=== PATIENT | male | born 1975 | race Caucasian/White ===

== ENCOUNTER 2023-04-11 11:01 | Emergency (ER) | payer OTHER, SELFPAY ==
[2023-04-11 11:12] VITALS: BP 127/82; PULSE 51; RESP 16; TEMP 36.4; O2SAT 100
--- NOTE | 2023-04-11 11:28 | ED.NAVMDI ---
HPI - Nausea/Vomiting/Diarrhea General Chief complaint: Nausea/Vomiting/Diarrhea Stated complaint: Diarrhea Time Seen by Provider: 04/11/23 11:19 Source: patient and RN notes reviewed Mode of arrival: ambulatory Limitations: no limitations History of Present Illness HPI Narrative: Patient presents today complaining of 2 episodes of diarrhea last night and 2 this morning. This morning he noted bright red blood in the toilet. Denies abdominal pain, nausea or vomiting, fever. Denies any GI history. He has never had a colonoscopy. Related Data Home Medications Medication Instructions Recorded Confirmed No Home Medications 04/11/23 04/11/23 Allergies Allergy/AdvReac Type Severity Reaction Status Date / Time No Known Allergies Allergy Verified 04/11/23 11:20 Review of Systems Review of Systems: CONSTITUTIONAL: Denies body aches, fever, chills, or sweats. EYES: Denies visual changes, redness, or discharge. ENT: Denies rhinorrhea, congestion, sore throat, or otalgia. CARDIOVASCULAR: Denies chest pain, palpitations, or edema. RESPIRATORY: Denies cough or dyspnea. GASTROINTESTINAL: Denies abdominal pain, nausea, vomiting. + diarrhea, bright red blood GENITOURINARY: Denies dysuria or hematuria. SKIN: Denies rash, itching, or wounds. MUSCULOSKELETAL: Denies back pain, joint pain, or myalgia. NEUROLOGIC: Denies headache, numbness, tingling, or weakness. PSYCH: Denies depression or anxiety. PMFSH Comments At time of signature, I have reviewed and agree with nursing past medical, surgical, social and family history unless otherwise noted. Please see nursing chart for further information. There is no relevant family history pertinent to the presenting complaint Exam Narrative: GENERAL: Well-appearing, well-nourished, and in no acute distress. HEAD: Normocephalic, atraumatic. EYES: EOMI. No redness or drainage. Conjunctivae normal. ENT: Mucous membranes pink and moist. NECK: Normal AROM. CHEST: No respiratory distress. Clear to auscultation. HEART: Regular rate and rhythm. No murmur appreciated. Normal peripheral pulses. ABDOMEN: Soft, nontender, nondistended, normal active bowel sounds. EXTREMITIES: Normal range of motion. No edema. SKIN: Warm, dry, no rash. Capillary refill normal. Normal skin turgor. NEURO: No focal deficits. Alert and oriented x3. Gait steady. PSYCH: Normal affect. No signs of depression or anxiety. Course Course Level of Care: Express Care Visit Vital Signs Vital signs: Vital Signs Temperature 97.6 F 04/11/23 11:12 Pulse Rate 51 L 04/11/23 11:12 Respiratory Rate 16 04/11/23 11:12 Blood Pressure 127/82 04/11/23 11:12 Pulse Oximetry 100 04/11/23 11:12 Temperature 97.6 F 04/11/23 11:12 Pulse Rate 51 L 04/11/23 11:12 Respiratory Rate 16 04/11/23 11:12 Blood Pressure 127/82 04/11/23 11:12 Pulse Oximetry 100 04/11/23 11:12 Reviewed Transfer Transfered to: [facility] Transportation: Other (Private vehicle) Transfer rationale: Bloody diarrhea Accepting physician: Sina MDM - Nausea/Vomiting/Diarrhea MDM Narrative Medical decision making narrative: Patient will be sent to the hospital for further evaluation in the emergency room. Differential Diagnosis Differential diagnosis: Likely gastroenteritis and other (Internal hemorrhoid, anal fissure, diverticulitis) Critical Care Time Critical Care Time Critical Care Time: No Discharge Plan Discharge Clinical Impression: Hematochezia Patient Disposition: Acute Care Hospital Condition: Stable Prescriptions: No Action No Home Medications Follow-up/Referrals: PHYSICIAN,LENS MATCHER [Primary Care Provider] - Time of Disposition: 11:34
== END 2023-04-11 11:45 | disposition short-term general hospital (02) ==
PROVIDERS: Emergency Provider Nurse Practitioner
DX: K92.1 Melena (principal)
CPT/HCPCS: 99212; G0463

== ENCOUNTER 2023-04-11 11:59 | Inpatient (IN) | payer OTHER, SELFPAY ==
--- NOTE | ~2023-04-11 | CT_ITS ---
EXAMINATION: CT abdomen pelvis w con DATE: 04/11/2023 12:58 INDICATION: GI bleed. TECHNIQUE: Computed tomography (CT) of the abdomen and pelvis was performed with 100 cc Omnipaque 350 intravenous contrast. The dose-length product was 668.43 mGy-cm. Automated exposure control and iter ative reconstruction technique were employed. COMPARISON: None. FINDINGS: Lung bases are unremarkable. Heart size normal. No significant pleural or pericardial effus ion. Fatty infiltration of the liver. The spleen, pancreas, adrenal glands and kidneys are unremarkab le. Gallbladder is contracted. Nonobstructive bowel gas pattern. Normal appendix. No significant vasc ular abnormality. No lymphadenopathy. No free air or free fluid. Colonic diverticulosis without evide nce for diverticulitis. Small fat-containing umbilical hernia. IMPRESSION: 1. No acute abdominal abnormality. Reviewed, dictated and finalized at location B. [employer]
[2023-04-11 12:04] VITALS: BP 134/76; PULSE 51; RESP 16; TEMP 36.2; O2SAT 100
--- NOTE | 2023-04-11 12:14 | ED.GIBLEED ---
HPI - GI Bleed General Chief complaint: GI Bleed Stated complaint: blood in stool Time Seen by Provider: 04/11/23 12:11 Rectal bleed started last night, up to 4 bowel movements so far, the 1st 2 was soft and dark, the last 2 watery and bloody fresh red bright blood. Patient denies any abdominal pain, fever, chills, nausea, vomiting, history of GI bleed. Patient does not take medicine, he does not smoke or uses drugs, drink occasionally. Source: family Mode of arrival: ambulatory Limitations: no limitations History of Present Illness HPI Narrative: Patient presents with rectal bleed started last night up to 4 bowel movements so far, the 1st 2 bowel movement was soft and dark, the last 2 bowel movements were bloody and watery, fresh red bright blood. Patient denies any abdominal pain fever chills nausea vomiting or history of GI bleed. Patient does not take any blood thinner. Patient does not smoke or uses drugs, drinks occasionally. No history of hemorrhoids. Related Data Home Medications Medication Instructions Recorded Confirmed No Home Medications 04/11/23 04/11/23 Allergies Allergy/AdvReac Type Severity Reaction Status Date / Time Penicillins Allergy Hives Verified 04/11/23 12:43 Review of Systems Review of Systems: All systems reviewed & are unremarkable except as noted in HPI and below Exam Narrative: General appearance: Well-developed, well-nourished Skin: Normal color Head: Normocephalic, nontraumatic Eyes: Clear conjunctiva ENT: Oropharynx normal, ears normal, nose normal Neck: Supple, nontender Chest and respiratory: Airway patent, no respiratory distress, no accessory muscle use Heart: Regular rate/rhythm Abdomen: Soft, nontender, no organomegaly, quiet bowel sounds rectal exam showed fresh red bright blood, gross, guaiac positive, no hemorrhoids Vascular: Normal peripheral pulses, normal capillary refill. Musculoskeletal: Normal range of motion, nontender back Neurologic: Alert and oriented ?3, [employer] SAL[employer] REPRESENTATIVE is normal as tested, no gross motor deficit Course Course Emergency Course: Patient did not have any bowel movement since arrival to the ED until the time of admission. Reevaluation(s) Reevaluation #1: Patient denying any new symptoms, no bowel movement since arrival to the ED until the time of admission Date: 04/11/23 Time: 14:24 Consultations Consultation #1: Dr. Ernst Date: 04/11/23 Time: 13:09 Vital Signs Vital signs: Vital Signs Temperature 36.2 C L 04/11/23 12:04 Pulse Rate 51 L 04/11/23 12:04 Respiratory Rate 16 04/11/23 12:04 Blood Pressure 134/76 04/11/23 12:04 Pulse Oximetry 100 04/11/23 12:04 Temperature 36.2 C L 04/11/23 12:04 Pulse Rate 51 L 04/11/23 12:04 Respiratory Rate 16 04/11/23 12:04 Blood Pressure 134/76 04/11/23 12:04 Pulse Oximetry 100 04/11/23 12:04 MDM - GI Bleed MDM Narrative Medical decision making narrative: Patient presents with rectal bleeding fresh red bright blood started last night, up to 4 bowel movement so far. In the ED patient have no bowel movement since our arrival until the time of admission. No history of GI bleed, vital signs on arrival stable, physical examination showed active gross rectal bleed fresh red bright blood, no hemorrhoids or mass or pain., CT abdomen and pelvis CT abdomen and pelvis with IV contrast showed no acute abnormalities Dr. Ernst was notified Admit to hospitalist, observation, Protonix started, patient received 1 L of normal saline IV, admit on 125 mL per hour. Differential Diagnosis Differential diagnosis: Likely gastritis, Upper gastrointestinal hemorrhage and Lower gastrointestinal hemorrhage Me
[2023-04-11 12:37] LABS: Basophils Percent Auto 0.7 % (0.2-1.2); Eosinophils Absolute Auto 0.2 K/mm3 (0-0.3); Eosinophils Percent Auto 4.2 % (0-4.4); Hematocrit 41.1 % (42.0-52.0); Hemoglobin 13.8 g/dL (14.0-18.0); Immature Granulocyte Absolute 0.02 K/mm3 (0.00-0.031); Immature Granulocyte Percent A 0.4 % (0-0.5); Lymphocytes Absolute Auto 1.31 K/mm3 (0.9-3.2); Mean Corpuscular HGB Conc 33.6 g/dl (32-36); Mean Corpuscular Hemoglobin 30.1 pg (26-34); Mean Corpuscular Volume 89.5 fl (80-100); Mean Platelet Volume 10.2 fl (7.4-10.4); Monocytes Absolute Auto 0.3 K/mm3 (0.1-0.6); Monocytes Percent Auto 7.1 % (2.6-8.5); Neutrophils Absolute Auto 2.6 K/mm3 (1.3-6.7); Neutrophils Percent Auto 58.6 % (45.5-73.1); Platelet Count Result 228 k/mm3 (150-375); Red Blood Count 4.59 M/mm3 (4.6-6.20); Red Cell Distribution Width 12.3 % (11.5-14.5); White Blood Count 4.5 K/mm3 (4.5-10.0)
[2023-04-11 12:44] LABS: Alanine Aminotransferase 27 U/L (6-50); Albumin Level 3.9 g/dL (3.5-5.1); Alkaline Phosphatase 76 U/L (38-126); Anion Gap 4 mmol/L (8-16); Aspartate Amino Transferase 24 U/L (17-59); Bilirubin,Total 0.5 mg/dL (0.2-1.3); Blood Urea Nitrogen 16 mg/dL (9-20); Calcium 8.9 mg/dL (8.4-10.2); Carbon Dioxide 29 mmol/L (22-30); Chloride 103 mmol/L (98-107); Estimated CRCL calculation 131 ml/min; Estimated Glomerular Filt Rate > 60; Glucose 103 mg/dL (65-110); Potassium 4.1 mmol/L (3.4-5.0); Sodium 136 mmol/L (137-145)
[2023-04-11] MEDS: SODIUM CHLORIDE 0.9% IV 1,000 ML 999 ML IV CONT (12:44)
[2023-04-11 12:48] LABS: Prothrombin Time 13.5 Seconds (11.1-14.7)
[2023-04-11 12:49] LABS: Partial Thromboplastin Time 26.7 SECONDS (22.3-36.8)
[2023-04-11] MEDS: PANTOPRAZOLE SODIUM IV 40 MG VIAL IV PUSH ×2 (13:11→14:47)
[2023-04-11] MEDS: SODIUM CHLORIDE 0.9% IV 1,000 ML 125 ML IV CONT ×2 (14:47→22:58)
[2023-04-11 14:54] VITALS: BP 115/69; PULSE 55; RESP 17; O2SAT 100
--- NOTE | 2023-04-11 16:02 | PM.IMHP ---
H&P: HPI History of Present Illness Date/Time: 04/11/23 16:05 Chief Complaint: Bloody stools. Narrative: This is a healthy 47-year-old male who presented to the emergency department via private vehicle for evaluation of bloody stools. The patient provides the following history. He was in his usual state of health when he went to bed last night. At about 23:30 he had the sudden urge to have a bowel and reports passing 2 soft stools overnight. This morning he had a pressure-like discomfort in the left lower quadrant and reports passing 2 watery stools which he describes as bright red blood. He has never had similar symptoms and typically has a normal bowel movement each day. He does not strain to move his bowels. He has no issues with hemorrhoids to his knowledge. He has never had a colonoscopy. He denies significant NSAID use. He is not having any pain or discomfort at this time and has not had any other bowel movement since admission. He denies syncope, near syncope, nausea, vomiting, fever, chills, sweats, and weight loss. Vital signs were stable on arrival to the emergency department. Hemoglobin was 13.8 on arrival. The remainder of his labs were pretty unremarkable. CT of the abdomen and pelvis did not show any acute abdominal abnormality but fatty infiltration of the liver was noted as well as colonic diverticulosis. He is being admitted in this setting for close monitoring and GI consultation. Review of Systems Review of Systems: Twelve systems were reviewed and are negative except for as per HPI. [facility] Past Medical History Medical History (Updated 04/11/23 @ 22:10 by Lorenza Ocasio PA-C) Cellulitis Fatty liver Noted on CT scan on 04/11/2023. Surgical History Surgical History (Updated 04/11/23 @ 22:08 by Lorenza Ocasio PA-C) History of repair of ACL (03/2008) Family History Family History (Updated 04/11/23 @ 22:08 by Lorenza Ocasio PA-C) Other Diverticulitis Social History Social History (Updated 04/11/23 @ 22:09 by Lorenza Ocasio PA-C) Social History: Surrogate medical decision maker: Desiree James, spouse. Code status: Full code. Smoking status: Never smoker Alcohol intake: current Drinks per week: 4 Substance use: never Substance use type: does not use Do You Feel Safe in your Home?: Yes Lack of Transportation: No Lack of Food: Never True Current Housing: I Have Housing Concerned About Future Housing: No Difficulty Paying Gas/Electric Bills: No Difficulty Paying for Meds: No Currently Unemployed: No Education: Bachelor's Degree Difficulty w/ Childcare or Family Care: No Additional living arrangements comments: Lives in [place]. Additional occupation/education comments: [employer]. Spiritual care concerns: No Meds Home Medications and Allergies Home Medications Medication Instructions Recorded Confirmed Type No Home Medications 04/11/23 04/11/23 History Allergies Allergy/AdvReac Type Severity Reaction Status Date / Time Penicillins Allergy Hives Verified 04/11/23 12:43 Vital Signs Vital Signs - 24 hr 04/11/23 12:04 04/11/23 14:54 Temperature 97.2 F L Pulse Rate 51 L 55 L Respiratory Rate 16 17 Blood Pressure 134/76 115/69 Pulse Oximetry 100 100 Exam Narrative: General: Well-developed, nontoxic-appearing male sitting up in bed no distress. Weight: 95 kg. BMI: 26.9. HEENT: PERRL, EOMI. Sclera anicteric. Oral mucosa moist. Neck: Supple. Respiratory: Lungs are clear to auscultation bilaterally. Cardiovascular: Bradycardic with normal S1-S2. Resting heart rate is typically in the upper 40s to low 50s per patient report. Gastrointestinal: Abdomen is soft, nontender, and nondistended with positive bowel sounds. Skin: Warm and dry. Extremities: No cyanosis, clubbing, or edema. Radial and pedal pulses intact. Neurological: Alert. Cranial nerves 2-12 are grossly intact. No gross focal
[2023-04-11 17:13] LABS: Hematocrit 38.6 % (42.0-52.0); Hemoglobin 12.4 g/dL (14.0-18.0)
--- NOTE | 2023-04-11 17:25 | ADMGEN ---
This patient, Alberto James, was admitted to 3 [facility] Surg Room 322-02 @ 1725. Patient/family oriented to hospital policies and general routines including ID bracelet, bed and alarms, visiting hours, pain management, procedures, bathroom and other care routines, personal items, smoking policy, room service/diet, and visiting hours. Information on how to activate the Rapid Response Team has been discussed. Patient/Family are encouraged to report perceived risks to care and to ask questions if they do not understand what they are told or what they should do.
[2023-04-11 17:55] VITALS: BMI 26.9
[2023-04-11 20:00] VITALS: BP 127/81; BP 130/71; BP 138/72; O2SAT 98
[2023-04-11 21:25] LABS: Hematocrit 37.7 % (42.0-52.0); Hemoglobin 12.1 g/dL (14.0-18.0)
[2023-04-11 21:31] VITALS: BP 123/74; PULSE 51; RESP 16; TEMP 36.4; O2SAT 99
[2023-04-12] VITALS (12 sets, daily range): BP systolic 107–122; BP diastolic 55–71; PULSE 52–70; RESP 13–18; TEMP 36.2–36.6; O2SAT 97–99
[2023-04-12 03:44] LABS: Basophils Percent Auto 0.2 % (0.2-1.2); Eosinophils Absolute Auto 0.2 K/mm3 (0-0.3); Eosinophils Percent Auto 4.7 % (0-4.4); Hematocrit 36.3 % (42.0-52.0); Hemoglobin 12.3 g/dL (14.0-18.0); Immature Granulocyte Absolute 0.01 K/mm3 (0.00-0.031); Immature Granulocyte Percent A 0.2 % (0-0.5); Lymphocytes Absolute Auto 1.64 K/mm3 (0.9-3.2); Lymphocytes Percent Auto 36.9 % (18.3-44.2); Mean Corpuscular HGB Conc 33.9 g/dl (32-36); Mean Corpuscular Volume 88.5 fl (80-100); Monocytes Absolute Auto 0.3 K/mm3 (0.1-0.6); Monocytes Percent Auto 6.7 % (2.6-8.5); Neutrophils Absolute Auto 2.3 K/mm3 (1.3-6.7); Neutrophils Percent Auto 51.3 % (45.5-73.1); Platelet Count Result 207 k/mm3 (150-375); Red Cell Distribution Width 12.3 % (11.5-14.5); White Blood Count 4.5 K/mm3 (4.5-10.0)
[2023-04-12 04:02] LABS: Anion Gap 2 mmol/L (8-16); Blood Urea Nitrogen 11 mg/dL (9-20); Calcium 8.5 mg/dL (8.4-10.2); Carbon Dioxide 27 mmol/L (22-30); Chloride 109 mmol/L (98-107); Estimated CRCL calculation 131 ml/min; Estimated Glomerular Filt Rate > 60; Glucose 92 mg/dL (65-110); Potassium 4.2 mmol/L (3.4-5.0); Sodium 138 mmol/L (137-145)
[2023-04-12 08:37] LABS: Hematocrit 38.6 % (42.0-52.0); Hemoglobin 12.6 g/dL (14.0-18.0)
[2023-04-12] MEDS: PANTOPRAZOLE SODIUM IV 40 MG VIAL IV PUSH (10:16)
[2023-04-12] MEDS: SODIUM CHLORIDE 0.9% IV 1,000 ML 125 ML IV CONT (10:19)
--- NOTE | 2023-04-12 16:42 | PM.IMPN ---
Progress Note: A&P Assessment and Plan (1) Diverticulosis of colon: Code(s): K57.30 - Diverticulosis of large intestine without perforation or abscess without bleeding Status: Acute (2) Fatty liver: Code(s): K76.0 - Fatty (change of) liver, not elsewhere classified Status: Acute (3) Rectal bleeding: Code(s): K62.5 - Hemorrhage of anus and rectum Status: Acute (4) Acute GI bleeding: Code(s): K92.2 - Gastrointestinal hemorrhage, unspecified Status: Acute (5) Acute blood loss anemia (ABLA): Code(s): D62 - Acute posthemorrhagic anemia Status: Acute Plan Continue with the medical management on the floor Patient's hemoglobin was 13.8 on admission, which is now ranging between 12.1 and 12.6 Monitor hemoglobin closely Avoid NSAID/anticoagulation/aspirin Switch IV Protonix to oral Protonix 40 mg b.i.d. GI consult given from ER upon admission who are not available this weekend and which evaluate him on Friday DC IV fluids DC NPO, continue with regular diet Patient has family history of diverticulosis which is apparently his past history as well Patient likely has mild GI bleeding from diverticulosis/hemorrhoids Patient would likely need colonoscopy on Friday DC planning once cleared by GI ? Patient seen and examined at bedside during my morning rounds ? Collaborated with patient's nurse at the bedside in detail and addressed all concerns ? Labs, electrolytes, radiology, investigations and test results reviewed ? Consult/Nursing/Ancilliary notes on the chart reviewed and appreciated ? Spoke with patient/ at the bedside and answered all the questions that they had Repeat labs in a.m. Electrolyte replacement as per protocol. Patient will be monitored very closely on the floor. Further recommendations as per the hospital course. Time Spent With Patient Time with patient: 25 - 35 minutes Subjective Date/time seen: 04/12/23 16:42 Interval history: Patient feeling better today. His abdominal pain and spasms have improved. He is still seeing the blood-tinged stools. GI is not on this weekend and will see him on Friday. Review of Systems Review of Systems: 14 systems were reviewed with pertinent positives and negatives per HPI. Except as documented in the HPI/progress notes, all other systems were reviewed and are negative. All systems reviewed & are unremarkable except as noted in HPI and below Exam Narrative: PHYSICAL EXAMINATION: Vital signs: Please see the chart General physical exam: Patient sitting in bed, pleasant cooperative on exam, appears in no acute distress, he is concerned about bloody stools Head/eyes: Atraumatic, EOMI, PERRLA ENT: Moist mucous membranes, nasal passages clear Neck: Supple, full range of motion, trachea midline CVS: S1 + S2, regular rate and rhythm, no murmurs Respiratory: Bilaterally fair air entry in both lung hughes, mild B/L crackles, symmetric chest expansion, no distress Abdomen: Soft, non-tender, bowel sounds +ve, no organomegaly Extremities: No clubbing, no cyanosis, no edema, no calf tenderness Musculoskeletal: Moves all, adequate range of motion, no muscle spasms Skin: Warm, dry, no jaundice, no cyanosis Neurological: Awake, alert, oriented x 3, cranial nerves II-XII intact, no focal neurological deficits Psychiatric: Normal mood, non suicidal Objective Data Vital Signs Vital Signs: Vital Signs - 24 hr 04/11/23 18:11 04/11/23 20:00 04/11/23 21:31 Temperature 36.4 C Pulse Rate 51 L Respiratory Rate 16 Blood Pressure 123/74 Pulse Oximetry 98 99 Oxygen Delivery Room Air Room Air 04/11/23 20:00 04/11/23 20:00 04/11/23 20:00 Temperature Pulse Rate Respiratory Rate Blood Pressure 138/72 130/71 127/81 Pulse Oximetry Oxygen Delivery 04/12/23 00:00 04/12/23 05:55 04/12/23 09:14 Temperature 36.2 C L 36.4 C L Pulse Rate 54 L 60 Respiratory Rate 18 16 Blood Pressure 11
[2023-04-12] MEDS: PANTOPRAZOLE 40 MG TABLET PO (19:51)
[2023-04-13] VITALS (8 sets, daily range): BP systolic 115–139; BP diastolic 65–88; PULSE 50–72; RESP 12–20; TEMP 36.2–36.9; O2SAT 97–99
[2023-04-13 07:22] LABS: Basophils Percent Auto 0.7 % (0.2-1.2); Eosinophils Absolute Auto 0.2 K/mm3 (0-0.3); Eosinophils Percent Auto 3.9 % (0-4.4); Immature Granulocyte Absolute 0.01 K/mm3 (0.00-0.031); Immature Granulocyte Percent A 0.2 % (0-0.5); Lymphocytes Absolute Auto 1.21 K/mm3 (0.9-3.2); Lymphocytes Percent Auto 27.8 % (18.3-44.2); Mean Corpuscular HGB Conc 33.3 g/dl (32-36); Mean Corpuscular Hemoglobin 29.5 pg (26-34); Mean Corpuscular Volume 88.5 fl (80-100); Monocytes Absolute Auto 0.3 K/mm3 (0.1-0.6); Monocytes Percent Auto 6.2 % (2.6-8.5); Neutrophils Absolute Auto 2.7 K/mm3 (1.3-6.7); Neutrophils Percent Auto 61.2 % (45.5-73.1); Platelet Count Result 192 k/mm3 (150-375); Red Blood Count 4.07 M/mm3 (4.6-6.20); Red Cell Distribution Width 12.2 % (11.5-14.5); White Blood Count 4.4 K/mm3 (4.5-10.0)
[2023-04-13 07:34] LABS: Anion Gap 5 mmol/L (8-16); Blood Urea Nitrogen 13 mg/dL (9-20); Calcium 8.5 mg/dL (8.4-10.2); Carbon Dioxide 27 mmol/L (22-30); Chloride 107 mmol/L (98-107); Estimated CRCL calculation 116 ml/min; Estimated Glomerular Filt Rate > 60; Glucose 89 mg/dL (65-110); Phosphorus 3.3 mg/dL (2.5-4.5); Potassium 3.9 mmol/L (3.4-5.0); Sodium 139 mmol/L (137-145)
[2023-04-13] MEDS: PANTOPRAZOLE 40 MG TABLET PO ×2 (08:55→21:07)
--- NOTE | 2023-04-13 16:41 | PM.IMPN ---
Progress Note: A&P Assessment and Plan (1) Diverticulosis of colon: Code(s): K57.30 - Diverticulosis of large intestine without perforation or abscess without bleeding Status: Acute (2) Fatty liver: Code(s): K76.0 - Fatty (change of) liver, not elsewhere classified Status: Acute (3) Rectal bleeding: Code(s): K62.5 - Hemorrhage of anus and rectum Status: Acute (4) Acute GI bleeding: Code(s): K92.2 - Gastrointestinal hemorrhage, unspecified Status: Acute (5) Acute blood loss anemia (ABLA): Code(s): D62 - Acute posthemorrhagic anemia Status: Acute Plan Continue with the medical management on the floor Patient's hemoglobin was 13.8 on admission, which is now ranging between 12.1 and 12.6 Monitor hemoglobin closely Avoid NSAID/anticoagulation/aspirin Switch IV Protonix to oral Protonix 40 mg b.i.d. GI consult given from ER upon admission who are not available this weekend and which evaluate him on Friday DC IV fluids DC NPO, continue with regular diet Patient has family history of diverticulosis He has also been diagnosed diverticulosis on CT scan of abdomen during this visit Patient likely has mild GI bleeding from diverticulosis/hemorrhoids GI consult given for evaluation and management recommendations Patient would likely need colonoscopy on Friday DC planning once cleared by GI ? Patient seen and examined at bedside during my morning rounds ? Collaborated with patient's nurse at the bedside in detail and addressed all concerns ? Labs, electrolytes, radiology, investigations and test results reviewed ? Consult/Nursing/Ancilliary notes on the chart reviewed and appreciated ? Spoke with patient/ at the bedside and answered all the questions that they had Repeat labs in a.m. Electrolyte replacement as per protocol. Patient will be monitored very closely on the floor. Further recommendations as per the hospital course. Time Spent With Patient Time with patient: less than 15 minutes Subjective Date/time seen: 04/13/23 16:41 Interval history: Patient is feeling OK. Still seeing blood tinged stools. Awaiting GI consult in am. Review of Systems Review of Systems: 14 systems were reviewed with pertinent positives and negatives per HPI. Except as documented in the HPI/progress notes, all other systems were reviewed and are negative. All systems reviewed & are unremarkable except as noted in HPI and below Exam Narrative: PHYSICAL EXAMINATION: Vital signs: Please see the chart General physical exam: Patient sitting in bed, pleasant cooperative on exam, appears in no acute distress, he is concerned about bloody stools Head/eyes: Atraumatic, EOMI, PERRLA ENT: Moist mucous membranes, nasal passages clear Neck: Supple, full range of motion, trachea midline CVS: S1 + S2, regular rate and rhythm, no murmurs Respiratory: Bilaterally fair air entry in both lung hughes, mild B/L crackles, symmetric chest expansion, no distress Abdomen: Soft, non-tender, bowel sounds +ve, no organomegaly Extremities: No clubbing, no cyanosis, no edema, no calf tenderness Musculoskeletal: Moves all, adequate range of motion, no muscle spasms Skin: Warm, dry, no jaundice, no cyanosis Neurological: Awake, alert, oriented x 3, cranial nerves II-XII intact, no focal neurological deficits Psychiatric: Normal mood, non suicidal Objective Data Vital Signs Vital Signs: Vital Signs - 24 hr 04/12/23 19:13 04/12/23 19:34 04/12/23 19:44 Temperature Pulse Rate Respiratory Rate Blood Pressure Pulse Oximetry 98 98 98 Oxygen Delivery Room Air Room Air Room Air 04/12/23 19:54 04/12/23 19:55 04/12/23 19:55 Temperature 36.3 C L Pulse Rate 62 53 L 64 Respiratory Rate 13 Blood Pressure 121/67 114/65 107/63 Pulse Oximetry 98 98 98 Oxygen Delivery 04/12/23 21:21 04/13/23 05:43 04/13/23 08:00 Temperature 36.3 C L 36.9 C Pulse Rate 62 72 Respiratory R
[2023-04-14] VITALS (7 sets, daily range): BP systolic 118–142; BP diastolic 64–79; PULSE 52–56; RESP 18–20; TEMP 35.9–36.8; O2SAT 99
[2023-04-14 06:43] LABS: Hematocrit 33.4 % (42.0-52.0); Hemoglobin 10.9 g/dL (14.0-18.0); Mean Corpuscular HGB Conc 32.6 g/dl (32-36); Mean Corpuscular Hemoglobin 29.4 pg (26-34); Red Blood Count 3.71 M/mm3 (4.6-6.20); Red Cell Distribution Width 12.2 % (11.5-14.5); White Blood Count 5.4 K/mm3 (4.5-10.0)
[2023-04-14 06:44] LABS: Basophils Percent Auto 0.4 % (0.2-1.2); Eosinophils Absolute Auto 0.1 K/mm3 (0-0.3); Eosinophils Percent Auto 2.6 % (0-4.4); Immature Granulocyte Absolute 0.02 K/mm3 (0.00-0.031); Immature Granulocyte Percent A 0.4 % (0-0.5); Lymphocytes Absolute Auto 1.44 K/mm3 (0.9-3.2); Lymphocytes Percent Auto 26.9 % (18.3-44.2); Monocytes Absolute Auto 0.4 K/mm3 (0.1-0.6); Neutrophils Absolute Auto 3.3 K/mm3 (1.3-6.7); Neutrophils Percent Auto 61.7 % (45.5-73.1); Platelet Count Result 190 k/mm3 (150-375)
[2023-04-14 06:55] LABS: Anion Gap 5 mmol/L (8-16); Blood Urea Nitrogen 18 mg/dL (9-20); Calcium 8.4 mg/dL (8.4-10.2); Carbon Dioxide 28 mmol/L (22-30); Chloride 105 mmol/L (98-107); Estimated CRCL calculation 116 ml/min; Estimated Glomerular Filt Rate > 60; Glucose 86 mg/dL (65-110); Potassium 4.1 mmol/L (3.4-5.0); Sodium 138 mmol/L (137-145)
[2023-04-14] MEDS: PANTOPRAZOLE 40 MG TABLET PO ×2 (07:52→20:33)
--- NOTE | 2023-04-14 13:35 | WPDGICN ---
Assessment and Plan Assessment and plan (1) Acute blood loss anemia (ABLA): Code(s): D62 - Acute posthemorrhagic anemia Status: Acute Assessment and Plan: wonder if could be diverticular source will do colonoscopy tomorrow since never had one more recommendations after scope (2) Diverticulosis of colon: Code(s): K57.30 - Diverticulosis of large intestine without perforation or abscess without bleeding Status: Acute (3) Rectal bleeding: Code(s): K62.5 - Hemorrhage of anus and rectum Status: Acute Assessment and Plan: monitor for more bleeding (4) Fatty liver: Code(s): K76.0 - Fatty (change of) liver, not elsewhere classified Status: Acute Assessment and Plan: incidental finding GI Consult Note Consult date/time: 04/14/23 13:35 Reason for consult: rectal bleeding HPI: Alberto James is a 47 year old male with no chronic medical problems with new onset of brbpr night then came to hospital and admitted. CT scan reviewed, no acute abdominal abnormality but fatty infiltration of the liver was noted as well as colonic diverticulosis. He is still having blood in stools, 2-3 times a day, no abdominal pain but never had colonoscopy. hgb from 13 to 10.9 Review of Systems Constitutional: Constitutional: Denies headache(s) Eyes: Eyes: Denies blurry vision ENT: Reports Normal hearing present, Denies headache(s) and Denies neck pain Cardiovascular: Cardiovascular: Denies chest pain and Denies dyspnea Respiratory: Respiratory: Denies dyspnea Gastrointestinal: Gastrointestinal: Reports no additional gastrointestinal complaints Genitourinary: Genitourinary: Denies dysuria Musculoskeletal: Musculoskeletal: Denies neck pain Integumentary/Breasts: Skin/Breast: Denies dry skin Neurologic: Reports Normal hearing present and Denies headache(s) Psychiatric: Psychiatric: Denies anxiety Endocrine: Endocrine: Denies change in body appearance Hematologic/Lymphatic: Hematologic/Lymphatic: Denies easy bleeding Allergic/Immunologic: Allergic/Immunologic: Denies urticaria PMFSH Past Medical History Medical History (Updated 04/12/23 @ 16:44 by Dmitri Rodriguez MD) Cellulitis Fatty liver Noted on CT scan on 04/11/2023. Surgical History Surgical History (Updated 04/11/23 @ 22:08 by Lorenza G Gerling, PA-C) History of repair of ACL (03/2008) Family History Family History (Updated 04/11/23 @ 22:08 by Lorenza Ocasio PA-C) Other Diverticulitis Social History Social History (Updated 04/11/23 @ 22:09 by Lorenza Ocasio PA-C) Social History: Surrogate medical decision maker: Desiree James, spouse. Code status: Full code. Smoking status: Never smoker Alcohol intake: current Drinks per week: 4 Substance use: never Substance use type: does not use Do You Feel Safe in your Home?: Yes Lack of Transportation: No Lack of Food: Never True Current Housing: I Have Housing Concerned About Future Housing: No Difficulty Paying Gas/Electric Bills: No Difficulty Paying for Meds: No Currently Unemployed: No Education: Bachelor's Degree Difficulty w/ Childcare or Family Care: No Additional living arrangements comments: Lives in [place]. Additional occupation/education comments: [employer]. Spiritual care concerns: No Meds Home Medications and Allergies Home Medications Medication Instructions Recorded Confirmed Type No Home Medications 04/11/23 04/11/23 History Allergies Allergy/AdvReac Type Severity Reaction Status Date / Time Penicillins Allergy Hives Verified 04/11/23 12:43 Vital Signs Vital Signs - 24 hr 04/13/23 14:00 04/13/23 20:00 04/13/23 22:00 Temperature 97.1 F L 98.1 F Pulse Rate 55 L 50 L Respiratory Rate 16 20 Blood Pressure 129/87 123/67 Pulse Oximetry 99 99 Oxygen Delivery Room Air 04/13/23 20:00 04/13/23 20:05 04/13/23 20:1
[2023-04-14] MEDS: BISACODYL 5 MG TABLET EC 20 MG PO (16:49)
[2023-04-14] MEDS: polyethylene glycoL 3350 238 GM BOTTLE PO (16:49)
--- NOTE | 2023-04-14 17:05 | PM.IMPN ---
Progress Note: A&P Assessment and Plan (1) Diverticulosis of colon: Code(s): K57.30 - Diverticulosis of large intestine without perforation or abscess without bleeding Status: Acute (2) Fatty liver: Code(s): K76.0 - Fatty (change of) liver, not elsewhere classified Status: Acute (3) Rectal bleeding: Code(s): K62.5 - Hemorrhage of anus and rectum Status: Acute (4) Acute GI bleeding: Code(s): K92.2 - Gastrointestinal hemorrhage, unspecified Status: Acute (5) Acute blood loss anemia (ABLA): Code(s): D62 - Acute posthemorrhagic anemia Status: Acute Plan Continue with the medical management on the floor Patient's hemoglobin was 13.8 on admission, which is continuing to downtrend and currently at 10.9 today Check iron profile with morning labs Monitor hemoglobin closely Avoid NSAID/anticoagulation/aspirin Patient has family history of diverticulosis He has also been diagnosed diverticulosis on CT scan of abdomen during this visit Patient likely has mild GI bleeding from diverticulosis/hemorrhoids Switch IV Protonix to oral Protonix 40 mg b.i.d. GI consult appreciated Patient will be be prepped and kept NPO after midnight for colonoscopy in am DC planning once cleared by GI ? Patient seen and examined at bedside during my morning rounds ? Collaborated with patient's nurse at the bedside in detail and addressed all concerns ? Labs, electrolytes, radiology, investigations and test results reviewed ? Consult/Nursing/Ancilliary notes on the chart reviewed and appreciated ? Spoke with patient/ at the bedside and answered all the questions that they had Repeat labs in a.m. Electrolyte replacement as per protocol. Patient will be monitored very closely on the floor. Further recommendations as per the hospital course. Time Spent With Patient Time with patient: 15 - 25 minutes Subjective Date/time seen: 04/14/23 17:05 Interval history: Patient lying in bed during work. Awaiting GI consultation. Still seeing blood tinged stools. Hemoglobin is slowly downtrending. Review of Systems Review of Systems: 14 systems were reviewed with pertinent positives and negatives per HPI. Except as documented in the HPI/progress notes, all other systems were reviewed and are negative. All systems reviewed & are unremarkable except as noted in HPI and below Exam Narrative: PHYSICAL EXAMINATION: Vital signs: Please see the chart General physical exam: Patient sitting in bed, pleasant cooperative on exam, appears in no acute distress, he is concerned about bloody stools Head/eyes: Atraumatic, EOMI, PERRLA ENT: Moist mucous membranes, nasal passages clear Neck: Supple, full range of motion, trachea midline CVS: S1 + S2, regular rate and rhythm, no murmurs Respiratory: Bilaterally fair air entry in both lung hughes, mild B/L crackles, symmetric chest expansion, no distress Abdomen: Soft, non-tender, bowel sounds +ve, no organomegaly Extremities: No clubbing, no cyanosis, no edema, no calf tenderness Musculoskeletal: Moves all, adequate range of motion, no muscle spasms Skin: Warm, dry, no jaundice, no cyanosis Neurological: Awake, alert, oriented x 3, cranial nerves II-XII intact, no focal neurological deficits Psychiatric: Normal mood, non suicidal Objective Data Vital Signs Vital Signs: Vital Signs - 24 hr 04/13/23 20:00 04/13/23 22:00 04/13/23 20:00 Temperature 36.7 C Pulse Rate 50 L Respiratory Rate 20 Blood Pressure 123/67 132/67 Pulse Oximetry 99 Oxygen Delivery Room Air 04/13/23 20:05 04/13/23 20:10 04/14/23 06:00 Temperature 36.8 C Pulse Rate 52 L Respiratory Rate 20 Blood Pressure 139/83 120/88 118/66 Pulse Oximetry 99 Oxygen Delivery 04/14/23 08:00 04/14/23 14:00 04/14/23 14:00 Temperature 35.9 C L Pulse Rate 52 L Respiratory Rate 18 Blood Pressure 119/77 126/75 Pulse Oximetry 99 Oxygen Delivery Room Air
[2023-04-15] VITALS (8 sets, daily range): BP systolic 96–127; BP diastolic 60–75; PULSE 52–80; RESP 16–20; TEMP 36.2–36.8; O2SAT 96–100
[2023-04-15] MEDS: MAGNESIUM CITRATE 300 ML BTL PO (02:30)
[2023-04-15 06:37] LABS: Basophils Percent Auto 0.1 % (0.2-1.2); Eosinophils Absolute Auto 0.1 K/mm3 (0-0.3); Hemoglobin 11.8 g/dL (14.0-18.0); Immature Granulocyte Absolute 0.02 K/mm3 (0.00-0.031); Immature Granulocyte Percent A 0.2 % (0-0.5); Lymphocytes Absolute Auto 0.81 K/mm3 (0.9-3.2); Lymphocytes Percent Auto 9.2 % (18.3-44.2); Mean Corpuscular HGB Conc 32.8 g/dl (32-36); Mean Corpuscular Hemoglobin 29.3 pg (26-34); Mean Corpuscular Volume 89.3 fl (80-100); Mean Platelet Volume 9.8 fl (7.4-10.4); Monocytes Absolute Auto 0.5 K/mm3 (0.1-0.6); Monocytes Percent Auto 6.1 % (2.6-8.5); Neutrophils Absolute Auto 7.4 K/mm3 (1.3-6.7); Neutrophils Percent Auto 83.4 % (45.5-73.1); Platelet Count Result 217 k/mm3 (150-375); Red Blood Count 4.03 M/mm3 (4.6-6.20); Red Cell Distribution Width 12.4 % (11.5-14.5); White Blood Count 8.8 K/mm3 (4.5-10.0)
[2023-04-15 07:05] LABS: Anion Gap 7 mmol/L (8-16); Blood Urea Nitrogen 10 mg/dL (9-20); Calcium 9.1 mg/dL (8.4-10.2); Carbon Dioxide 25 mmol/L (22-30); Chloride 107 mmol/L (98-107); Estimated CRCL calculation 116 ml/min; Estimated Glomerular Filt Rate > 60; Glucose 99 mg/dL (65-110); Potassium 4.2 mmol/L (3.4-5.0); Sodium 139 mmol/L (137-145)
[2023-04-15] MEDS: PANTOPRAZOLE 40 MG TABLET PO (09:23)
[2023-04-15 10:03] LABS: Iron 58 ug/dL (49-181); Percent Iron Saturation 16 % (20-50)
[2023-04-15] MEDS: LACTATED RINGERS 1,000 ML 150 ML IV CONT (13:42)
--- NOTE | 2023-04-15 14:01 | WPDANESEPPF ---
Anes - Initial Pre Proc Eval Procedure: Operation Date: 04/15/23 15:00 Proposed Procedures p Colonoscopy - Ned Shepard MD Date/Time: 04/15/23 14:01 Surgeon: Dmitri Rodriguez MD Pre Op Diagnosis: GI Bleed Patient Data Age: 47 Gender: M Height: 1.88 m Weight: 95.8 kg Last Vital Signs Temp 98.3 F 04/15/23 13:40 Pulse 56 L 04/15/23 13:40 Resp 18 04/15/23 13:40 BP 127/75 04/15/23 13:40 Pulse Ox 100 04/15/23 13:40 O2 Del Method Room Air 04/15/23 13:40 Allergies Allergy/AdvReac Type Severity Reaction Status Date / Time Penicillins Allergy Hives Verified 04/11/23 12:43 Home Medications Medication Instructions Recorded Confirmed Type No Home Medications 04/11/23 04/11/23 History Laboratory Tests 04/15/23 06:21 WBC 8.8 K/mm3 (4.5-10.0) RBC 4.03 L M/mm3 (4.6-6.20) Hgb 11.8 L g/dL (14.0-18.0) Hct 36.0 L % (42.0-52.0) MCV 89.3 fl (80-100) MCH 29.3 pg (26-34) MCHC 32.8 g/dl (32-36) RDW 12.4 % (11.5-14.5) Plt Count 217 k/mm3 (150-375) MPV 9.8 fl (7.4-10.4) Immature Gran % (Auto) 0.2 % (0-0.5) Neut % (Auto) 83.4 H % (45.5-73.1) Lymph % (Auto) 9.2 L % (18.3-44.2) [place] % (Auto) 6.1 % (2.6-8.5) Eos % (Auto) 1.0 % (0-4.4) Baso % (Auto) 0.1 L % (0.2-1.2) Lymph # (Auto) 0.81 L K/mm3 (0.9-3.2) [place] # (Auto) 0.5 K/mm3 (0.1-0.6) Eos # (Auto) 0.1 K/mm3 (0-0.3) Baso # (Auto) 0.0 K/mm3 (0.0-0.1) Abs Immat Gran (auto) 0.02 K/mm3 (0.00-0.031) Absolute Neuts (auto) 7.4 H K/mm3 (1.3-6.7) Absolute Nucleated RBC 0.0 K/mm3 (0.0-0.012) Nucleated RBC % 0.0 % (0.0-0.2) Sodium 139 mmol/L (137-145) Potassium 4.2 mmol/L (3.4-5.0) Chloride 107 mmol/L (98-107) Carbon Dioxide 25 mmol/L (22-30) Anion Gap 7 L mmol/L (8-16) BUN 10 D mg/dL (9-20) Creatinine 0.80 mg/dL (0.7-1.3) Estim Creat Clear Calc 116 ml/min Estimated GFR > 60 (59 - ) Glucose 99 mg/dL (65-110) Calcium 9.1 mg/dL (8.4-10.2) Iron 58 ug/dL (49-181) TIBC 363 ug/dL (265-497) % Saturation 16 L % (20-50) Ferritin 23.10 ng/mL (17.9-464) Patient hx anesthesia problems: none Family hx anesthesia problems: none Results Review: All pre-operative results and documents have been reviewed as part of the pre-operative evaluation. [facility] Past Medical History Medical History (Updated 04/12/23 @ 16:44 by Dmitri Rodriguez MD) Cellulitis Fatty liver Noted on CT scan on 04/11/2023. Surgical History Surgical History (Updated 04/11/23 @ 22:08 by Lorenza Ocasio PA-C) History of repair of ACL (03/2008) Family History Family History (Updated 04/11/23 @ 22:08 by Lorenza Ocasio PA-C) Other Diverticulitis Social History Social History (Updated 04/11/23 @ 22:09 by Lorenza Ocasio PA-C) Social History: Surrogate medical decision maker: Desiree James, spouse. Code status: Full code. Smoking status: Never smoker Alcohol intake: current Drinks per week: 4 Substance use: never Substance use type: does not use Do You Feel Safe in your Home?: Yes Lack of Transportation: No Lack of Food: Never True Current Housing: I Have Housing Concerned About Future Housing: No Difficulty Paying Gas/Electric Bills: No Difficulty Paying for Meds: No Currently Unemployed: No Education: Bachelor's Degree Difficulty w/ Childcare or Family Care: No Additional living arrangements comments: Lives in [place]. Additional occupation/education comments: [employer]. Spiritual care concerns: No Anes - Eval Final PreProcedure Day of Procedure 04/15/23 14:01 Patient weight: normal Heart: regular rate and rhythm Lungs: clear to auscultation Airway: Mallampati scale class II Neurological: alert and oriented Last oral intake: >/= 8 hours ASA classifi
--- NOTE | 2023-04-15 16:22 | PM.DS ---
DS: Admitting Diagnosis Discharge Date 04/15/2023: Admitting Diagnosis Lower GI bleeding DS: Discharge Diagnosis Discharge Diagnosis (1) Acute blood loss anemia (ABLA): Code(s): D62 - Acute posthemorrhagic anemia Status: Acute (2) Diverticulosis of colon: Code(s): K57.30 - Diverticulosis of large intestine without perforation or abscess without bleeding Status: Acute (3) Fatty liver: Code(s): K76.0 - Fatty (change of) liver, not elsewhere classified Status: Acute (4) Rectal bleeding: Code(s): K62.5 - Hemorrhage of anus and rectum Status: Acute (5) Acute GI bleeding: Code(s): K92.2 - Gastrointestinal hemorrhage, unspecified Status: Acute (6) Colonic polyp: Code(s): K63.5 - Polyp of colon Status: Acute (7) Internal hemorrhoids: Code(s): K64.8 - Other hemorrhoids Status: Acute DS: Summary Hospital Course Reason for hospitalization: Patient admitted for evaluation of his bloody stools Hospital Course: H&P: HPI History of Present Illness Date/Time: 04/11/23? 16:05 Chief Complaint: Bloody stools. Narrative: This is a healthy 47-year-old male who presented to the emergency department via private vehicle for evaluation of bloody stools. The patient provides the following history. He was in his usual state of health when he went to bed last night. At about 23:30 he had the sudden urge to have a bowel and reports passing 2 soft stools overnight. This morning he had a pressure-like discomfort in the left lower quadrant and reports passing 2 watery stools which he describes as bright red blood. He has never had similar symptoms and typically has a normal bowel movement each day. He does not strain to move his bowels. He has no issues with hemorrhoids to his knowledge. He has never had a colonoscopy. He denies significant NSAID use. He is not having any pain or discomfort at this time and has not had any other bowel movement since admission. He denies syncope, near syncope, nausea, vomiting, fever, chills, sweats, and weight loss. Vital signs were stable on arrival to the emergency department. Hemoglobin was 13.8 on arrival. The remainder of his labs were pretty unremarkable. CT of the abdomen and pelvis did not show any acute abdominal abnormality but fatty infiltration of the liver was noted as well as colonic diverticulosis. He is being admitted in this setting for close monitoring and GI consultation. HOSPITAL COURSE ... Date of Admission - 04/14/2023: Continue with the medical management on the floor Patient's hemoglobin was 13.8 on admission, which is continuing to downtrend and currently at 10.9 today Check iron profile with morning labs ?Monitor hemoglobin closely Avoid NSAID/anticoagulation/aspirin Patient has family history of diverticulosis He has also been diagnosed diverticulosis on CT scan of abdomen during this visit Patient likely has mild GI bleeding from diverticulosis/hemorrhoids Switch IV Protonix to oral Protonix 40 mg b.i.d. GI consult appreciated Patient will be be prepped and kept NPO after midnight for colonoscopy in am DC planning once cleared by GI 04/15/2023: Patient seen and evaluated bedside. No complaints of bloody stools overnight. Hemoglobin improved overnight from 10.9-11.8. Iron profile was done which showed adequate iron stores. Patient underwent colonoscopy today which shows findings as below: Colonoscopy findings ... 04/15/2023: 4 mm polyp in cecum ... Status post excision 4 mm polyp in sigmoid colon... Status post excision Multiple diverticula present throughout colon Few small size internal hemorrhoids seen in the rectum, not actively bleeding He has been advised to follow up closely with the GI for follow-up on polyp cytology. He is due for next colonoscopy in 5 years. Advised close follow-up with the PCP and GI as an outpatient. Status at Discharge Functional status at discharge: independent
== END 2023-04-15 17:40 | disposition home or self-care (01) | DRG 379 ==
LOC: ANHED 14:27 → ANH3MEDSUR 16:59
PROVIDERS: Internal Medicine Gastroenterology; Physician Assistant; Admitting Provider Internal Medicine; Emergency Provider Emergency Medicine; Visit Provider Family Medicine
PROC: 0DJD8ZZ Inspection of Lower Intestinal Tract, Via Natural or Artificial Opening Endoscopic (ICD-10-PCS; CPT 45378; principal; 2023-04-15 15:00)
DX: K57.31 Diverticulosis of large intestine without perforation or abscess with bleeding (principal); K63.5 Polyp of colon; K92.1 Melena; K64.8 Other hemorrhoids; K76.0 Fatty (change of) liver, not elsewhere classified
CPT/HCPCS: 36415; 74177; 80048; 80053; 82728; 83540; 83550; 83735; 84100; 85014; 85018; 85025; 85610; 85730; 86850; 86900; 86901; 88305; 96361; 96374; 96376; 99285; A9270; C9113; G0378; J2704; J7030; J7120; Q9967

== ENCOUNTER 2023-08-26 08:43 | Outpatient (CLI) | payer OTHER, SELFPAY ==
[2023-08-26 13:04] LABS: Basophils Percent Auto 0.9 % (0.2-1.2); Eosinophils Absolute Auto 0.4 K/mm3 (0-0.3); Eosinophils Percent Auto 7.9 % (0-4.4); Hematocrit 40.5 % (42.0-52.0); Hemoglobin 12.6 g/dL (14.0-18.0); Immature Granulocyte Absolute 0.01 K/mm3 (0.00-0.031); Immature Granulocyte Percent A 0.2 % (0-0.5); Lymphocytes Absolute Auto 1.34 K/mm3 (0.9-3.2); Lymphocytes Percent Auto 30.2 % (18.3-44.2); Mean Corpuscular HGB Conc 31.1 g/dl (32-36); Mean Corpuscular Hemoglobin 25.4 pg (26-34); Mean Corpuscular Volume 81.5 fl (80-100); Mean Platelet Volume 10.9 fl (7.4-10.4); Monocytes Absolute Auto 0.3 K/mm3 (0.1-0.6); Monocytes Percent Auto 7.4 % (2.6-8.5); Neutrophils Absolute Auto 2.4 K/mm3 (1.3-6.7); Neutrophils Percent Auto 53.4 % (45.5-73.1); Platelet Count Result 246 k/mm3 (150-375); Red Blood Count 4.97 M/mm3 (4.6-6.20); Red Cell Distribution Width 16.9 % (11.5-14.5); White Blood Count 4.4 K/mm3 (4.5-10.0)
[2023-08-26 13:14] LABS: Alanine Aminotransferase 26 U/L (6-50); Albumin Level 4.3 g/dL (3.5-5.1); Alkaline Phosphatase 76 U/L (38-126); Anion Gap 6 mmol/L (4-12); Aspartate Amino Transferase 50 U/L (17-59); Bilirubin,Total 0.7 mg/dL (0.2-1.3); Blood Urea Nitrogen 14 mg/dL (9-20); Calcium 9.2 mg/dL (8.4-10.2); Carbon Dioxide 25 mmol/L (22-30); Chloride 106 mmol/L (98-107); Cholesterol 184 mg/dL (0-200); Estimated Glomerular Filt Rate > 60; Glucose 81 mg/dL (65-110); HDL Direct 39 mg/dL; Potassium 4.1 mmol/L (3.4-5.0); Sodium 137 mmol/L (137-145); Triglycerides 151 mg/dL (<150)
[2023-08-26 13:25] LABS: LDL Cholesterol Direct 108 mg/dL
[2023-08-26 13:37] LABS: Vitamin D 25 Hydroxy 42.4 ng/mL
== END 2023-08-26 08:44 | disposition home or self-care (01) ==
LOC: ANHGOSHLAB 08:44
PROVIDERS: PCP Family Medicine; Visit Provider Family Medicine
DX: Z00.00 Encounter for general adult medical examination without abnormal findings (principal); K62.5 Hemorrhage of anus and rectum; Z13.220 Encounter for screening for lipoid disorders; K76.0 Fatty (change of) liver, not elsewhere classified; Z13.29 Encounter for screening for other suspected endocrine disorder; E53.8 Deficiency of other specified B group vitamins; E55.9 Vitamin D deficiency, unspecified
CPT/HCPCS: 36415; 80053; 80061; 82306; 82607; 84443; 85025

== ENCOUNTER 2023-12-26 08:41 | Emergency (ER) | payer OTHER, SELFPAY ==
[2023-12-26 08:52] VITALS: BP 119/84; PULSE 49; RESP 16; TEMP 36.4; O2SAT 98
[2023-12-26 09:14] LABS: EDSTREPNEGPOS1 Negative (Negative)
--- NOTE | 2023-12-26 09:18 | ED.URI ---
HPI - URI/Sore Throat General Chief Complaint: Upper Respiratory Infection Stated Complaint: sorethroat History of Present Illness HPI Narrative: 48 y/o male presented for c/o scratchy throat. Onset this morning. Endorses mild nasal congestion. Daughters tested positive for strep 3 days ago. Denies n/v/d/f/c. Running a marathon in 2 days. Related Data Home Medications Medication Instructions Recorded Confirmed No Home Medications 12/26/23 12/26/23 Allergies Allergy/AdvReac Type Severity Reaction Status Date / Time Penicillins Allergy Hives Verified 08/28/23 10:32 Review of Systems Review of Systems: CONSTITUTIONAL: Denies body aches, fever, chills, or sweats. EYES: Denies visual changes, redness, or discharge. ENT: reports sore throat, nasal congestion Denies rhinorrhea, or otalgia. CARDIOVASCULAR: Denies chest pain, palpitations, or edema. RESPIRATORY: Denies dyspnea. GASTROINTESTINAL: Denies abdominal pain, nausea, vomiting, or diarrhea. SKIN: Denies rash, itching, or wounds. MUSCULOSKELETAL: Denies back pain, joint pain, or myalgia. NEUROLOGIC: Denies headache PMFSH Past Medical History Medical History Acute GI bleeding Asthma Cellulitis Colonic polyp (~03/2023) Diverticulosis of colon Fatty liver Noted on CT scan on 04/11/2023. Rectal bleeding (~03/2023) Seasonal allergies Surgical History Surgical History History of repair of anterior cruciate ligament of right knee (~03/2008) Family History Family History Other No problems noted. Mother Hypertension Father Diverticulitis Grandparent Lung cancer Social History Social History Social History: Surrogate medical decision maker: Desiree James, spouse. Code status: Full code. Smoking status: Never smoker Alcohol intake: current Drinks per week: 4 Substance use: never Substance use type: does not use Do You Feel Safe in your Home?: Yes Lack of Transportation: No Lack of Food: Never True Current Housing: I Have Housing Concerned About Future Housing: No Difficulty Paying Gas/Electric Bills: No Difficulty Paying for Meds: No Currently Unemployed: No Education: Bachelor's Degree Difficulty w/ Childcare or Family Care: No Additional living arrangements comments: Lives in [place]. Additional occupation/education comments: [employer]. Spiritual care concerns: No Exam Narrative: GENERAL: well-appearing, no acute distress. EYES: conjunctivae clear ENT: Mucous membranes moist. TMs pearly kessler with normal light reflex bilaterally; no tragal tenderness. Oropharynx mildly erythematous without lesions. Tonsils enlarged 1+ and without exudate. No drooling, no hoarseness, no trismus, uvula midline. No tripod positioning, hot potato voice, or soft palate swelling. NECK: Supple. No lymphadenopathy CHEST: Clear to auscultation, breath sounds equal. No respiratory distress, speaks in full sentences. HEART: Regular rate and rhythm. No murmur heard. SKIN: Warm, dry, no rash. NEURO: Alert and oriented x3. Course Course Emergency Course: Patient is aware of diagnosis, understands and agrees to treatment plan. Anticipatory guidance given. Patient agrees to follow-up as directed and is aware of reasons to seek care at the emergency department. Portions of this record may have been created with voice recognition software Level of Care: Express Care Visit Vital Signs Vital signs: Vital Signs Temperature 97.5 F L 12/26/23 08:52 Pulse Rate 49 L 12/26/23 08:52 Respiratory Rate 16 12/26/23 08:52 Blood Pressure 119/84 12/26/23 08:52 Pulse Oximetry 98 12/26/23 08:52 Temperature 97.5 F L 12/26/23 08:52 Pulse Rate 49 L 12/26/23 08:52
== END 2023-12-26 09:27 | disposition home or self-care (01) ==
PROVIDERS: Emergency Provider Nurse Practitioner Family
DX: J02.9 Acute pharyngitis, unspecified (principal); J45.909 Unspecified asthma, uncomplicated; K76.0 Fatty (change of) liver, not elsewhere classified
CPT/HCPCS: 87081; 87880; 99213; G0463

== ENCOUNTER 2024-02-08 17:15 | Emergency (ER) | payer OTHER, SELFPAY ==
[2024-02-08 17:31] VITALS: BP 125/84; PULSE 60; RESP 16; TEMP 36.5; O2SAT 98
--- NOTE | 2024-02-08 17:54 | ED.URI ---
HPI - URI/Sore Throat General Chief Complaint: Upper Respiratory Infection Stated Complaint: Cold Symptoms Time Seen by Provider: 02/08/24 17:55 Source: patient Mode of arrival: ambulatory Limitations: no limitations History of Present Illness HPI Narrative: 48-year-old male with a history of asthma presented for complaint of nasal congestion and cough for 1 week. He states the congestion moved his chest. Endorses occasional wheezing and fatigue. Using [id number] medications for symptoms. He denies chest pain, it is nausea, vomiting, diarrhea, fever or lethargy. Related Data Allergies Allergy/AdvReac Type Severity Reaction Status Date / Time Penicillins Allergy Hives Verified 02/08/24 17:54 Review of Systems Review of Systems: CONSTITUTIONAL: Denies body aches, fever, chills, or sweats. EYES: Denies visual changes, redness, or discharge. ENT: Reports rhinorrhea, congestion, he denies sore throat, or otalgia. CARDIOVASCULAR: Denies chest pain, palpitations, or edema. RESPIRATORY: Reports cough, denies sob, wheezing. GASTROINTESTINAL: Denies abdominal pain, nausea, vomiting, or diarrhea. MUSCULOSKELETAL: Denies back pain, joint pain, or myalgia. NEUROLOGIC: Denies headache All systems reviewed & are unremarkable except as noted in HPI and below PMFSH Past Medical History Medical History Acute GI bleeding Asthma Cellulitis Colonic polyp (~03/2023) Diverticulosis of colon Fatty liver Noted on CT scan on 04/11/2023. Rectal bleeding (~03/2023) Seasonal allergies Surgical History Surgical History History of repair of anterior cruciate ligament of right knee (~03/2008) Family History Family History Other No problems noted. Mother Hypertension Father Diverticulitis Grandparent Lung cancer Social History Social History Social History: Surrogate medical decision maker: Desiree James, spouse. Code status: Full code. Smoking status: Never smoker Alcohol intake: current Drinks per week: 4 Substance use: never Substance use type: does not use Do You Feel Safe in your Home?: Yes Lack of Transportation: No Lack of Food: Never True Current Housing: I Have Housing Concerned About Future Housing: No Difficulty Paying Gas/Electric Bills: No Difficulty Paying for Meds: No Currently Unemployed: No Education: Bachelor's Degree Difficulty w/ Childcare or Family Care: No Additional living arrangements comments: Lives in [place]. Additional occupation/education comments: [employer]. Spiritual care concerns: No Comments At time of signature, I have reviewed and agree with nursing past medical, surgical, social and family history unless otherwise noted. Please see nursing chart for further information. There is no relevant family history pertinent to the presenting complaint Exam Narrative: GENERAL: Well-appearing, in no acute distress. EYES: EOMI. No redness or drainage. Conjunctivae normal. ENT: Mucous membranes pink and moist. No rhinorrhea. TMs normal bilaterally. Throat normal. Uvula midline. NECK: Normal AROM. Supple. CHEST: No respiratory distress. Lungs clear to all hughes. HEART: Regular rate and rhythm. No murmur appreciated. SKIN: Warm, dry. Capillary refill normal. Normal skin turgor. NEURO: Alert and oriented x3. Gait steady. PSYCH: Normal affect. Course Course Emergency Course: Patient is aware of diagnosis, understands and agrees to treatment plan. Anticipatory guidance given. Patient agrees to follow-up as directed and is aware of reasons to seek care at the emergency department. Portions of this record may have been created with voice recognition software Level of Care: Express Care Visit Vital Signs Vital signs: Vital Signs Oxygen Delivery Room Air 02/08/24 17:20 Temperature 97.7 F 02/08/24 17:31 Pulse Rate 60 02/08/24 17:31 Respiratory Rate 16 02/08/24 17:31 Blood Pressure 125/84 02/08/24 17:31 Pulse Oximetry 98 02/08/24 17:31 Oxygen Delivery Room Air 02/08/24 17:20 MDM - URI/Sore Throat MDM Narrative Medical decision making narrative: Discussed physical exam findings. Advised supportive measures and signs/symptoms to go to the ER. Pt is appropriate for outpt treatment and f/u. Differential Diagnosis Differential diagnosis: Likely upper respiratory infection, sinusitis, viral infection and bronchitis Discharge Plan Discharge Clinical Impression: Bronchitis Patient Disposition: Home, Self-Care Condition: Stable Instructions: Acute Bronchitis (ED) Additional Instructions: Acute bronchitis can be contagious because it is usually caused by infection with a virus or bacteria. It is usually for a few days but you can be contagious for up to one week. Avoid crowds until you do not have a fever and symptoms are improved Take medication as directed Recommend Flonase spray and Zyrtec (or Claritin/Angy) over the counter Cough syrup may cause drowsiness; avoid driving or take it at night time. Tylenol 1000mg every 8 hours as needed for pain Symptomatic treatment includes: rest, fluids, and increase humidity of the air at home. Follow up with your primary care provider as needed in 1 week Go to the ER for worsening symptoms or concerns Prescriptions: New methylprednisolone [Medrol (Cyril)] 4 mg tablets,dose pack See Rx Instructions .ROUTE .COMPLEX Qty: 21 0RF Rx Instructions: orally per package directions Follow-up/Referrals: PHYSICIAN,BURRING WHEEL OPERATOR [Primary Care Provider] - Time of Disposition: 18:10
== END 2024-02-08 18:12 | disposition home or self-care (01) ==
PROVIDERS: Emergency Provider Nurse Practitioner Family
DX: J40 Bronchitis, not specified as acute or chronic (principal); J45.909 Unspecified asthma, uncomplicated; K76.0 Fatty (change of) liver, not elsewhere classified
CPT/HCPCS: 99213; G0463

== ENCOUNTER 2024-03-13 10:24 | Emergency (ER) | payer OTHER, SELFPAY ==
[2024-03-13 12:25] VITALS: BP 134/85; PULSE 55; RESP 16; TEMP 36.7; O2SAT 99
--- NOTE | 2024-03-13 13:13 | ED_ITS ---
HPI - URI/Sore Throat General Chief Complaint: Upper Respiratory Infection Stated Complaint: cough,elliott, hot and cold flashes, exposed to flu A Time Seen by Provider: 03/13/24 13:08 Source: patient and RN notes reviewed Mode of arrival: ambulatory Limitations: no limitations History of Present Illness HPI Narrative: Patient presents today complaining of a 2 day history of cough, rhinorrhea, nasal congestion, slight sore throat, sweats and chills, fatigue. Patient was exposed to influenza. He has been taking Sudafed and Robitussin with some relief. Related Data Allergies Allergy/AdvReac Type Severity Reaction Status Date / Time Penicillins Allergy Hives Verified 03/13/24 12:20 Review of Systems 2 Review of Systems: CONSTITUTIONAL: Denies body aches, fever.+ sweats, chills, fatigue EYES: Denies visual changes, redness, or discharge. ENT: Denies otalgia.+ sore throat, congestion, rhinorrhea CARDIOVASCULAR: Denies chest pain, palpitations, or edema. RESPIRATORY: Denies dyspnea.+ cough GASTROINTESTINAL: Denies abdominal pain, nausea, vomiting, or diarrhea. GENITOURINARY: Denies dysuria or hematuria. SKIN: Denies rash, itching, or wounds. MUSCULOSKELETAL: Denies back pain, joint pain, or myalgia. NEUROLOGIC: Denies headache, numbness, tingling, or weakness. PSYCH: Denies depression or anxiety. [facility] Past Medical History Medical History Seasonal allergies Asthma Colonic polyp (~03/2023) Diverticulosis of colon Cellulitis Fatty liver Noted on CT scan on 04/11/2023. Rectal bleeding (~03/2023) Acute GI bleeding Surgical History Surgical History History of repair of anterior cruciate ligament of right knee (~03/2008) Family History Family History Other No problems noted. Mother Hypertension Father Diverticulitis Grandparent Lung cancer Social History Social History Social History: Surrogate medical decision maker: Desiree James, spouse. Code status: Full code. Smoking status: Never smoker Alcohol intake: current Drinks per week: 4 Substance use: never Substance use type: does not use Do You Feel Safe in your Home?: Yes Lack of Transportation: No Lack of Food: Never True Current Housing: I Have Housing Concerned About Future Housing: No Difficulty Paying Gas/Electric Bills: No Difficulty Paying for Meds: No Currently Unemployed: No Education: Bachelor's Degree Difficulty w/ Childcare or Family Care: No Additional living arrangements comments: Lives in [place]. Additional occupation/education comments: [email or web address]. Spiritual care concerns: No Comments At time of signature, I have reviewed and agree with nursing past medical, surgical, social and family history unless otherwise noted. Please see nursing chart for further information. There is no relevant family history pertinent to the presenting complaint Exam Narrative: GENERAL: Well-appearing, well-nourished, and in no acute distress. HEAD: Normocephalic, atraumatic. EYES: EOMI. No redness or drainage. Conjunctivae normal. ENT: Mucous membranes pink and moist. Nares congested with rhinorrhea. TMs normal bilaterally. Throat normal. Uvula midline. NECK: Normal AROM. Supple. No lymphadenopathy. CHEST: No respiratory distress. Clear to auscultation. HEART: Regular rate and rhythm. No murmur appreciated. EXTREMITIES: Normal range of motion. No edema. SKIN: Warm, dry, no rash. Capillary refill normal. Normal skin turgor. NEURO: No focal deficits. Alert and oriented x3. Gait steady. PSYCH: Normal affect. No signs of depression or anxiety. Course Course Level of Care: Express Care Visit Vital Signs Vital signs: Vital Signs Temperature 98.1 F 03/13/24 12:25 Pulse Rate 55 L 03/13/24 12:25 Respiratory Rate 16 03/13/24 12:25 Blood Pressure 134/85 03/13/24 12:25 Pulse Oximetry 99 03/13/24 12:25 Temperature 98.1 F 03/13/24 12:25 Pulse Rate 55 L 03/13/24 12:25 Respiratory Rate 16 03/13/24 12:25 Blood Pressure 134/85 03/13/24 12:25 Pulse Oximetry 99 12/28/24 12:25 Reviewed MDM - URI/Sore Throat MDM Narrative Medical decision making narrative: Influenza a positive. COVID and rapid strep negative. Prescription for Tamiflu sent to pharmacy. Anticipatory guidance given. Differential Diagnosis Differential diagnosis: Likely upper respiratory infection, sinusitis, viral infection, influenza and other (Strep throat, COVID) Lab Data Attestation: I reviewed the patient's lab results. Lab results narrative: Rapid strep negative, influenza a positive, COVID negative Critical Care Time Critical Care Time Critical Care Time: No Discharge Plan Discharge Clinical Impression: Influenza A Patient Disposition: Home, Self-Care Condition: Stable Instructions: Influenza (DC) Additional Instructions: You have tested positive for influenza A. Please take the Tamiflu as prescribed until gone. Continue [id number] medication as needed for your symptoms as well. If you develop shortness of breath, chest pain, or persistent fever longer than 5 days, please go to the ER immediately for further evaluation and treatment. Your blood pressure was elevated above 120/80 today at Urgent Care. This puts you above the threshold for follow up. Please schedule a followup visit with your personal physician as soon as possible, for further evaluation and treatment. Even blood pressure exceeding 120/80 may indicate pre-hypertension. Patient Language: Lao Prescriptions: New oseltamivir [Tamiflu] 75 mg capsule 75 mg PO Q12H 5 Days Qty: 10 0RF Follow-up/Referrals: UNKNOWN,DOCTOR [Primary Care Provider] - Time of Disposition: 13:19
[2024-03-13 13:18] LABS: EDCOVIDSCREEN Negative (Negative); EDINFLUASCREEN Positive (Negative); EDINFLUBSCREEN Negative (Negative); EDSTREPNEGPOS1 Negative (Negative)
== END 2024-03-13 13:21 | disposition home or self-care (01) ==
PROVIDERS: Emergency Provider Nurse Practitioner
DX: J10.1 Influenza due to other identified influenza virus with other respiratory manifestations (principal); Z20.822 Contact with and (suspected) exposure to COVID-19; J45.909 Unspecified asthma, uncomplicated
CPT/HCPCS: 87081; 87426; 87804; 87880; 99213; G0463

== ENCOUNTER 2024-07-17 12:47 | Emergency (ER) | payer OTHER, SELFPAY ==
--- NOTE | ~2024-07-17 | CT_ITS ---
EXAMINATION: CT cervical spine wo con DATE: 07/17/2024 14:37 INDICATION: L neck/occipital pain TECHNIQUE: Computed tomography (CT) of the cervical spine was performed without intravenous contrast. Automated exposure control and iterative reconstruction technique were employed. The dose-length pro duct was 398.31 mGy-cm. COMPARISON: None. FINDINGS: Vertebral Body Alignment: Intact. Craniocervical and atlantoaxial alignment: Mild degenerative change. Alignment intact. Osseous structures/fracture: No evidence of a lytic or blastic process in the visualized spine. No e vidence of acute fracture. Cervical soft tissues: The paraspinal soft tissues planes are maintained. 9 mm left thyroid lobe nodu le which requires no additional evaluation at this time. Degenerative changes: Mild degenerative disc disease and facet arthropathy, without severe central ca nal or neural foraminal narrowing. IMPRESSION: No acute fracture or traumatic malalignment in the cervical spine. Reviewed, dictated and finalized at location K.
[2024-07-17 12:54] VITALS: BP 129/84; PULSE 45; RESP 16; TEMP 36.6; O2SAT 99
--- NOTE | 2024-07-17 14:38 | ED.NECK ---
HPI - Neck Pain/Injury General Chief Complaint: Neck Pain/Injury Stated Complaint: left side neck pain Time Seen by Provider: 07/17/24 13:59 Source: patient Mode of arrival: ambulatory Limitations: no limitations History of Present Illness HPI Narrative: Patient is a 48-year-old male who presents the ED with report of left-sided neck pain. Patient reports he has been dealing with intermittent left-sided neck pain over the past few weeks, typically worse in the morning upon waking. Today he woke up and had more severe pain throughout his left-sided neck. Decreased range of motion. He attempted to go to his 's chiropractor, but was unable to have an adjustment performed due to the pain he was experiencing. Patient has tried ice/heat, has not taken anything further for pain. Prompted here for further evaluation. Denies any numbness or weakness of extremities, tingling in extremities, headache, confusion, dizziness, lightheadedness. Related Data Allergies Allergy/AdvReac Type Severity Reaction Status Date / Time Penicillins Allergy Hives Verified 07/17/24 13:18 Review of Systems Review of Systems: All systems reviewed & are unremarkable except as noted in HPI. All systems reviewed & are unremarkable except as noted in HPI and below PMFSH Past Medical History Medical History Seasonal allergies Asthma Colonic polyp (~03/2023) Diverticulosis of colon Cellulitis Fatty liver Noted on CT scan on 04/11/2023. Rectal bleeding (~03/2023) Acute GI bleeding Surgical History Surgical History History of repair of anterior cruciate ligament of right knee (~03/2008) Family History Family History Other No problems noted. Mother Hypertension Father Diverticulitis Grandparent Lung cancer Social History Social History Social History: Surrogate medical decision maker: Desiree James, spouse. Code status: Full code. Smoking status: Never smoker Alcohol intake: current Drinks per week: 4 Substance use: never Substance use type: does not use Do You Feel Safe in your Home?: Yes Lack of Transportation: No Lack of Food: Never True Current Housing: I Have Housing Concerned About Future Housing: No Difficulty Paying Gas/Electric Bills: No Difficulty Paying for Meds: No Currently Unemployed: No Education: Bachelor's Degree Difficulty w/ Childcare or Family Care: No Additional living arrangements comments: Lives in [place]. Additional occupation/education comments: [employer]. Spiritual care concerns: No Exam Narrative: GENERAL: Well appearing, well-nourished, non-toxic, in no acute distress. HEAD: Normocephalic, atraumatic. NECK: Limited ROM in any direction due to pain. Holding head in slightly tilted position to the R. No midline cervical spinal tenderness. No palpable bony deformities or step-offs. Focal tenderness to palpation along left upper paraspinal musculature into left occipital region. Sensation intact. No significant tenderness or trapezius muscles bilaterally. RESPIRATORY: Airway patent, respirations nonlabored. Clear to auscultation bilaterally, no rales, rhonchi, wheezing. CARDIOVASCULAR: Regular rate and rhythm without murmurs, rubs, or gallops. MUSCULOSKELETAL: Moves all extremities. No gross deformities. SKIN: Warm, dry, normal color. NEURO: A&O X3. Speech clear. Cranial nerves II-XII grossly intact. Steady gait. No ataxic movements. No focal deficits. PSYCHIATRIC: Appropriate mood and affect. Normal interaction. Course Vital Signs Vital signs: Vital Signs Temperature 97.9 F 07/17/24 12:54 Pulse Rate 45 L 07/17/24 12:54 Respiratory Rate 16 07/17/24 12:54 Blood Pressure 129/84 07/17/24 12:54 Pulse Oximetry 99 07/17/24 12:54 Oxygen Delivery Room Air 07/17/24 12:54 Temperature 97.9 F 07/17/24 12:54 Pulse Rate 52 L 07/17/24 17:00 Respiratory Rate 16 07/17/24 17:00 Blood Pressure 115/72 07/17/24 17:00 Pulse Oximetry 97 07/17/24 17:00 Oxygen Delivery Room Air 07/17/24 12:54 MDM - Neck Pain/Injury MDM Narrative Medical decision making narrative: Patient presented to ED with report left-sided neck pain, ongoing over the past few weeks, worsening today. Vital signs stable currently. Patient is neurologically intact. No focal deficits. Patient with discomfort with any type of movement. Pain seems most consistent with musculoskeletal etiology. CT cervical spine with some mild degenerative changes, no severe central canal narrowing. No acute fracture. Patient given [place], Tylenol, Toradol, Valium. On re-evaluation, he is feeling significantly improved. Resting much more comfortably. Feel he is safe for d/c home at this time. Will discharge with muscle relaxers, lidocaine patches, short course of pain medication. Discussed rice therapy, recommended close follow-up with PCP for further evaluation. Will also refer to neurosurgery for further evaluation as needed. Patient in agreement with plan. Given strict return precautions. Discharged in stable condition. Medical Records Attestation: I reviewed the patient's medical records. Imaging Data Attestation: I personally reviewed and interpreted this imaging study as follows: Radiologist's impression: ITS Impressions Cervical Spine CT 07/17/24 14:59 IMPRESSION: No acute fracture or traumatic malalignment in the cervical spine. Discharge Plan Discharge Clinical Impression: Cervical strain Qualifiers: Encounter type: initial encounter Qualified Code(s): S16.1XXA - Strain of muscle, fascia and tendon at neck level, initial encounter Patient Disposition: Home Condition: Stable Instructions: Antibiotic Form, Cervical Strain (ED), Cervical Sprain (ED), Cervical Radiculopathy (ED) Additional Instructions: You may use ice/heat, lidocaine patches to area of pain. Continue Tylenol and Ibuprofen as needed for pain. [place] as needed for breakthrough pain. Take muscle relaxers as needed and prescribed. Recommend taking these at night as they may cause sedation. Do not drive, operate heavy machinery, drink alcohol while on muscle relaxers as this may cause further sedation. Follow-up with your primary care doctor and/or neurosurgery for further evaluation. Return to the ED if you experience worsening or severe pain, injury, numbness in arms, severe dizziness/lightheadedness, persistent headaches, unable to keep down food or drink, or any other symptoms of concern. Patient Language: Serbian Prescriptions: New hydrocodone-acetaminophen 5-325 mg tablet 1 tablet PO Q6H PRN (Reason: pain) Qty: 5 0RF lidocaine 5 % adhesive patch,medicated 1 patch topical DAILY Qty: 15 0RF Rx Instructions: leave on most painful area for up to 12 hrs methocarbamol 750 mg tablet 1,500 mg PO TID PRN (Reason: muscle spasm) Qty: 15 0RF No Action oseltamivir [Tamiflu] 75 mg capsule 75 mg PO Q12H 5 Days Qty: 10 0RF Follow-up/Referrals: Vinita Gerardo MD [Physician] - (NEUROSURGERY) UNKNOWN,DOCTOR [Primary Care Provider] - Time of Disposition: 16:56
[2024-07-17] MEDS: diazePAM (*CRX) 2 MG TABLET PO (14:58)
[2024-07-17] MEDS: KETOROLAC (*BKC) 60 MG/2 ML VIAL IM (14:58)
[2024-07-17] MEDS: HYDROcodone/acetaminophen (*CRX) 5-325 MG TABLET 1 TAB PO (14:58)
[2024-07-17] MEDS: ACETAMINOPHEN 325 MG TABLET 650 MG PO (14:58)
[2024-07-17 16:14] VITALS: BP 119/82; PULSE 51; RESP 16; O2SAT 96
--- NOTE | 2024-07-17 16:14 | PC.NURSE ---
Pt. able to turn his head left and right slowly with little pain. Pt. unable to do this prior to pharmaceutical intervention.
--- OUTSIDE RECORDS SUMMARY | 2024-07-17 16:33 | XMS_ITS | Clinical Summary ---
Author Organization [facility] Address [address] [place] [address] Phone Care Team Providers Care Shank Tapper Name Role Phone Augusta Valle MD Primary Care Provider Allergies Active Allergy Reactions Criticality Noted Date Comments Penicillins Hives 03/04/2008 Medications No known medications Immunizations Immunization Administration Dates Next Due TDAP Vaccine 05/05/2021 Social History Tobacco Use Types Packs/Day Years Used Date Smoking Tobacco: Never Smokeless Tobacco: Never Alcohol Use Standard Drinks/Week Comments Yes 0 (1 standard drink = 0.6 oz pur e alcohol) OCCASIONAL Sex and Gender Information Value Date Recorded Sex Assigned at Not on file Legal Sex Male 8:58 PM CLERICAL SUPPORT Gender Identity Not on file Sexual Orientation Not on file Last Filed Vital Signs Vital Sign Reading Time Taken Comments Blood Pressure 138/70 05/05/2021 11:04 AM CLERICAL SUPPORT Pulse 60 05/05/2021 9:24 AM CLERICAL SUPPORT Temperature 35.9 C (96.7 F) 05/05/2021 9:24 AM CLERICAL SUPPORT Respiratory Rate 18 05/05/2021 11:04 AM CLERICAL SUPPORT Oxygen Saturation 97% 05/05/2021 9:24 AM CLERICAL SUPPORT Inhaled Oxygen Concentration - - Weight 90.7 kg (200 lb) 05/05/2021 9:24 AM CLERICAL SUPPORT Height 188 cm (6' 2 ) 05/05/2021 9:24 AM CLERICAL SUPPORT Body Mass Index 25.68 05/05/2021 9:24 AM CLERICAL SUPPORT Plan of Treatment Health Maintenance Due Date Last Done Comments Hepatitis C Virus (HCV) Screening 1975 Hepatitis B Immunization (1 of 3 19+ 3-dose series) 08/23/1994 Colonoscopy 08/23/2020 Colorectal Cancer Screening 08/23/2020 Influenza Immunization (#1) 11/16/202301/16, 01/15/2008 SARS-COV-2 Immunization (2023- season) 2023 01/17/2021, 06/17/2020, 05/20/2020 Respiratory Syncytial Virus (RSV) Immunization (Adult) (1 - 1-dose 75+ series) 08/23/2050 DTaP/Tdap/Td Immunization Discontinued 2021, 12/20/2016 Meningococcal Immunization (ACWY) Aged Out No longer eligible based on patient's age to complete this topic Pneumococcal Immunization Combined Aged Out No longer eligible based on patient's age to complete this topic Rotavirus Immunization Aged Out No lo nger eligible based on patient's age to complete this [place] [address] [facility] Care Teams Shank Tapper Relationship Specialty Start Date End Date Augusta Valle MD [address] [place] [address] PCP - General Internal Medicine 02/03/19
--- OUTSIDE RECORDS SUMMARY | 2024-07-17 16:33 | XMS_ITS | Referral Summary ---
Author Organization [address] Address [address] [place] [id number] Care Team Providers Care Supply Chain Planner Name Role Phone No, Physician Primary Care Provider [phone] Allergies Active Allergy Reactions Criticality Noted Date Comments Penicillins Hives Medium 03/04/2008 Medications clotrimazole 1 % cream Apply topically Active multivit ncrjeuai-ymwt-O A-calcium (THERA-M) 9 mg iron-400 mcg tablet Take 1 tablet by mouth daily Active terbinafine (LamiSIL) 250 mg tablet Take 1 tablet (250 mg total) by mouth Active Active Problems Problem Noted Date Diagnosed Date Asthma 02/04/2019 Sprain of cruciate ligament of knee 03/16/2008 Overview (11/06/2022): Right knee 09/21 injury Social History Tobacco Use Types Packs/Day Years Used Date Smoking Tobacco: Never Assessed Sex and Gender Information Value Date Recorded Sex Assigned at Not on file Legal Sex Male 9:17 PM CDT Gender Identity Not on file Sexual Orientation Not on file Last Filed Vital Signs Vital Sign Reading Time Taken Comments Blood Pressure 124/68 11/06/2022 9:41 AM CDT Pulse 68 11/06/2022 9:41 AM CDT Temperature 36.9 C (98.4 F) 11/06/2022 9:41 AM CDT Respiratory Rate 18 11/06/2022 9:41 AM CDT Oxygen Saturation 96% 11/06/2022 9:41 AM CDT Inhaled Oxygen Concentration - - Weight 93 kg (205 lb) 11/06/2022 9:41 AM CDT Height 188 cm (6' 2 ) 11/06/2022 9:41 AM CDT Body Mass Index 26.32 11/06/2022 9:41 AM CDT Plan of Treatment Not on file Insurance [facility] CHOICE PLUS [facility] CHOICE PLUS Care Teams Supply Chain Planner Relationship Specialty Start Date End Date No, Physician PCP - General 11/06/22
--- OUTSIDE RECORDS SUMMARY | 2024-07-17 16:33 | XMS_ITS | Clinical Summary ---
Author Organization [address] Address [address] [place] [id number] Care Team Providers Care Health Assistant Name Role Phone No, Physician Primary Care Provider [phone] Allergies Active Allergy Reactions Criticality Noted Date Comments Penicillins Hives Medium 03/04/2008 Medications clotrimazole 1 % cream Apply topically Active multivit lxtcohdm-mscg-N A-calcium (THERA-M) 9 mg iron-400 mcg tablet [...] on file Sexual Orientation Not on file Obstetrics History Last Filed Vital Signs Vital Sign Reading [...] 11/06/2022 9:41 AM CDT Plan of Treatment Health Maintenance Due Date Last Done Comments Colon Cancer Screening-Colonoscopy 1975 Depression Screening 1975 Hepatitis C Screening 1975 Hepatitis B Screening 08/23/1993 Regular Well Visit/Exam 18-64 08/23/1993 Pneumococcal vaccine <65 (1 of 2 - PCV) 08/23/1994 Covid-19 Vaccine (5 - 2023-2 5 season) 2023 01/07/2022, 01/17/2021, 06/17/2020, Additional history exists Influenza Vaccine (#1) 2023 , 01/22/2021, 02/04/2019, Additional history exists DTaP/Tdap/Td Vaccine (3 - Td or Tdap) 05/05/2031 05/05/2021, 12/20/2016 Insurance [facility] CHOICE PLUS [facility] CHOICE PLUS Care Teams Health Assistant Relationship Specialty Start Date End Date No, Physician PCP - General 11/06/22
[2024-07-17 17:00] VITALS: BP 115/72; PULSE 52; RESP 16; O2SAT 97
== END 2024-07-17 17:16 | disposition home or self-care (01) ==
PROVIDERS: Emergency Provider Physician Assistant
DX: S16.1XXA Strain of muscle, fascia and tendon at neck level, initial encounter (principal); X58.XXXA Exposure to other specified factors, initial encounter
CPT/HCPCS: 72125; 96372; 99284; A9270; J1885